=== PATIENT | male | born 1980 | race Caucasian/White ===

== ENCOUNTER 2022-01-30 17:34 | Emergency (ER) | payer BC, SELFPAY ==
--- NOTE | ~2022-01-30 | CT_ITS ---
EXAMINATION: CT abdomen pelvis w con DATE: 01/30/2022 20:23 INDICATION: Left lower quadrant abdominal pain. TECHNIQUE: Computed tomography (CT) of the abdomen and pelvis was performed with 100 mL Omnipaque 350 intravenous contrast. Automated exposure control and iterative reconstruction technique were employe d. The dose-length product was 854.42 mGy-cm. COMPARISON: None. FINDINGS: The visualized portions of the lung bases demonstrate mild atelectasis. No pleural effusion . The heart size is normal. No pericardial effusion. The liver is normal. There are changes of cholec ystectomy. The spleen, pancreas, adrenal glands, and kidneys are normal. There are no dilated loops o f bowel. The appendix is normal. There is prominent fat in the inguinal canals that may be hernias. T here is an umbilical hernia containing fat. There are no pathologically enlarged lymph nodes. There is no free intraperitoneal fluid. There is severe thoracic and lumbar spondylosis. There are changes of anterior and posterior fusion procedures from L4 to S1. IMPRESSION: 1. Prominent fat in the inguinal canals that may be hernias. 2. Umbilical hernia containing fat. Reviewed, dictated and finalized at location E.
[2022-01-30 17:41] VITALS: BP 161/103; PULSE 103; RESP 18; TEMP 36.3; O2SAT 100
[2022-01-30 17:51] LABS: Basophils Absolute Auto 0.1 K/mm3 (0.0-0.1); Basophils Percent Auto 0.6 % (0.2-1.2); Eosinophils Absolute Auto 0.1 K/mm3 (0-0.3); Hematocrit 52.6 % (42.0-52.0); Hemoglobin 17.8 g/dL (14.0-18.0); Immature Granulocyte Absolute 0.02 K/mm3 (0.00-0.031); Immature Granulocyte Percent A 0.3 % (0-0.5); Lymphocytes Absolute Auto 1.64 K/mm3 (0.9-3.2); Lymphocytes Percent Auto 21.2 % (18.3-44.2); Mean Corpuscular HGB Conc 33.8 g/dl (32-36); Mean Corpuscular Hemoglobin 31.2 pg (26-34); Mean Corpuscular Volume 92.3 fl (80-100); Mean Platelet Volume 9.2 fl (7.4-10.4); Monocytes Absolute Auto 0.7 K/mm3 (0.1-0.6); Monocytes Percent Auto 8.8 % (2.6-8.5); Neutrophils Absolute Auto 5.3 K/mm3 (1.3-6.7); Neutrophils Percent Auto 68.1 % (45.5-73.1); Platelet Count Result 337 k/mm3 (150-375); Red Cell Distribution Width 12.4 % (11.5-14.5); White Blood Count 7.7 K/mm3 (4.5-10.0)
[2022-01-30 18:02] LABS: Alanine Aminotransferase 62 U/L (6-50); Albumin Level 4.9 g/dL (3.5-5.1); Alkaline Phosphatase 55 U/L (38-126); Anion Gap 12 mmol/L (8-16); Aspartate Amino Transferase 41 U/L (17-59); Bilirubin,Total 1.3 mg/dL (0.2-1.3); Blood Urea Nitrogen 13 mg/dL (9-20); Calcium 9.9 mg/dL (8.4-10.2); Carbon Dioxide 26 mmol/L (22-30); Chloride 101 mmol/L (98-107); Estimated CRCL calculation 74 ml/min; Estimated Glomerular Filt Rate 60; Glucose 105 mg/dL (65-110); Lipase 79 U/L (23-300); Potassium 4.1 mmol/L (3.4-5.0); Sodium 139 mmol/L (137-145)
--- NOTE | 2022-01-30 18:52 | ED.ABDPAIN ---
HPI - Abdominal Pain General Chief Complaint: Abdominal Pain Stated Complaint: abdominal pain Time Seen by Provider: 01/30/22 18:48 Source: patient Mode of arrival: ambulatory Limitations: no limitations History of Present Illness HPI narrative: This is a 41-year-old male that presents to the emergency department for left lower quadrant pain/groin pain. Ongoing over the last week. The pain is intermittent in nature. Relieved with rest. No known exacerbating factors. Reports the pain radiates into his left testicle. Denies fever, vomiting, diarrhea, dysuria, hematuria, or redness or swelling of the testicle. Related Data Allergies Allergy/AdvReac Type Severity Reaction Status Date / Time No Known Allergies Allergy Unverified 05/23/18 12:41 Review of Systems Review of Systems: CONSTITUTIONAL: Denies fever GASTROINTESTINAL: Reports abdominal pain. Denies nausea, vomiting, or diarrhea. GENITOURINARY: Denies dysuria or hematuria. SKIN: Denies rash All systems reviewed & are unremarkable except as noted in HPI and below PMFSH Past Medical History Medical History (Updated 01/30/22 @ 21:34 by Annette Shaikh PA-C) No active medical problems Surgical History Surgical History (Updated 01/30/22 @ 18:55 by Annette Shaikh PA-C) History of cholecystectomy Social History Social History Smoking status: Never smoker Alcohol intake: never Exam Narrative: GENERAL: Well-appearing, well-nourished, and in no acute distress. HEAD: Normocephalic, atraumatic. EYES: EOMI. CHEST: Clear to auscultation. No respiratory distress. No wheezes rales or rhonchi HEART: Regular rate and rhythm. No murmur heard. Normal peripheral pulses. ABDOMEN: Soft, nondistended, normal active bowel sounds. Tender to palpation in the left groin. No obvious hernia noted. EXTREMITIES: Normal range of motion. No edema. SKIN: Warm, dry, no rash. NEURO: No focal deficits. Alert and oriented x3. PSYCH: Normal mood and affect Course Vital Signs Vital signs: Vital Signs Temperature 97.4 F L 01/30/22 17:41 Pulse Rate 103 H 01/30/22 17:41 Respiratory Rate 18 01/30/22 17:41 Blood Pressure 161/103 H 01/30/22 17:41 Pulse Oximetry 100 01/30/22 17:41 Temperature 97.4 F L 01/30/22 17:41 Pulse Rate 107 H 01/30/22 20:26 Respiratory Rate 18 01/30/22 20:26 Blood Pressure 151/121 H 01/30/22 20:26 Pulse Oximetry 95 01/30/22 20:26 MDM - Abdominal Pain MDM Narrative Medical decision making narrative: Patient presents to the emergency department for left lower quadrant pain. Ongoing over the last week. He is afebrile and nontoxic-appearing. Lab Data Attestation: I reviewed the patient's lab results. Result diagrams: 01/30/22 17:45 01/30/22 17:45 Labs: Lab Results 01/30/22 01/30/22 01/30/22 Range/Units 17:45 17:45 21:20 WBC 7.7 (4.5-10.0) K/mm3 RBC 5.70 (4.6-6.20) M/mm3 Hgb 17.8 (14.0-18.0) g/dL Hct 52.6 H (42.0-52.0) % MCV 92.3 (80-100) fl MCH 31.2 (26-34) pg MCHC 33.8 (32-36) g/dl RDW 12.4 (11.5-14.5) % Plt Count 337 (150-375) k/mm3 MPV 9.2 (7.4-10.4) fl Immature Gran % (Auto) 0.3 (0-0.5) % Neut % (Auto) 68.1 (45.5-73.1) % Lymph % (Auto) 21.2 (18.3-44.2) % [place] % (Auto) 8.8 H (2.6-8.5) % Eos % (Auto) 1.0 (0-4.4) % Baso % (Auto) 0.6 (0.2-1.2) % Lymph # (Auto) 1.64 (0.9-3.2) K/mm3 [place] # (Auto) 0.7 H (0.1-0.6) K/mm3 Eos # (Auto) 0.1 (0-0.3) K/mm3 Baso # (Auto) 0.1 (0.0-0.1) K/mm3 Abs Immat Gran (auto) 0.02 (0.00-0.031) K/mm3 Absolute Neuts (auto) 5.3 (1.3-6.7) K/mm3 Absolute Nucleated RBC 0.0 (0.0-0.012) K/mm3 Nucleated RBC % 0.0 (0.0-0.2) % Sodium 139 (137-145) mmol/L Potassium 4.1 (3.4-5.0) mmol/L Chloride 101 (98-107) mmol/L Carbon Dioxide 26 (22-30) mmol/L Anion Gap 12 (8-16) mmol/L BUN 13 (9-20) mg/dL Creatinine 1.30
--- NOTE | 2022-01-30 19:30 | PC.NURSE ---
Pt unable to provide urine at this time.
[2022-01-30 19:39] VITALS: BP 169/112; PULSE 106; RESP 16; O2SAT 99
[2022-01-30 19:45] VITALS: BP 169/112; PULSE 103; RESP 12; O2SAT 98
[2022-01-30 20:26] VITALS: BP 151/121; PULSE 107; RESP 18; O2SAT 95
[2022-01-30 20:27] VITALS: BP 162/101; PULSE 97; RESP 11; O2SAT 99
--- NOTE | 2022-01-30 20:30 | PC.NURSE ---
Pt unable to provide urine sample at this time pt states
[2022-01-30 21:26] LABS: Appearance Urine Clear (Clear); Bilirubin Urine Negative (Negative); Blood Urine Negative (Negative); Glucose Urine UA Negative (Negative); Ketones Urine 1+ mg/dL (Negative); Leukocyte Esterase Ur Negative LEU/UL (Negative); Nitrate Urine Negative (Negative); Protein Urine Negative (Negative); Urobilinogen Urine 0.2 mg/dL (<2.0); pH Urine 5.5 (5.0-9.0)
[2022-01-30 21:30] LABS: Add Urine Microscopic? YES
[2022-01-30 21:46] LABS: RBC Urine None seen /hpf (0-2)
[2022-01-30 21:47] LABS: WBC Urine None seen /hpf
[2022-01-30 21:49] LABS: Bacteria Urine None seen /hpf
[2022-01-30 21:50] LABS: Squamous Epithelial Cell Urine None seen /hpf (Few)
[2022-01-30 21:51] LABS: Color Urine Yellow (Yellow)
== END 2022-01-30 21:56 | disposition home or self-care (01) ==
PROVIDERS: Emergency Provider Emergency Medicine; PCP Internal Medicine
DX: K40.20 Bilateral inguinal hernia, without obstruction or gangrene, not specified as recurrent (principal); K42.9 Umbilical hernia without obstruction or gangrene; R00.0 Tachycardia, unspecified
CPT/HCPCS: 36415; 74177; 80053; 81001; 83690; 85025; 99284; Q9967